=== PATIENT | male | born 1990 | race Two or more races ===

== ENCOUNTER 2018-05-10 10:36 | Inpatient (IN) | payer SELFPAY ==
[~2018-05-10] VITALS: Ht 175.3 cm; Wt 76.1 kg
[2018-05-10 11:33] LABS: Urine Bacteria FEW /hpf (None Seen); Urine Blood Negative /uL (Negative); Urine Mucus MODERATE (None Seen); Urine Specific Gravity 1.036 (1.001-1.035); Urine WBC 1 /hpf (0 - 3)
[2018-05-10 12:28] LABS: Basophils # (auto) 0 uL; Basophils % (auto) 0.3 % (0.0-2.0); Eosinophils # (auto) 0 uL; Eosinophils % (auto) 0.3 % (0.0-7.0); Hematocrit 46.8 % (41.0-53.0); Hemoglobin 15.4 g/dL (13.5-17.5); Lymphocytes # (auto) 1.4 uL; Lymphocytes % (auto) 18.3 % (10.0-50.0); Mean Corpuscular Hemoglobin 30.9 pg (28.0-32.0); Mean Corpuscular Volume 93.9 fL (80.0-100.0); Monocytes # (auto) 0.5 uL; Monocytes % (auto) 7.1 % (0.0-12.0); Neutrophils # (auto) 5.7 uL; Nucleated Red Blood Cells % 0.1 %; Platelet Count (auto) 329 10^3/uL (140-450); Red Blood Cells 4.99 10^6/uL (4.5-5.90); Red Cell Distribution Width 13.3 % (11.8-14.3); White Blood Cell 7.6 10^3/uL (4.4-10.8)
[2018-05-10 12:53] LABS: Albumin 4.2 g/dL (3.4-5.0); BUN/Creatinine Ratio 13.3; Bilirubin, Total 0.5 mg/dL (0.2-1.0); Calcium 8.8 mg/dL (8.5-10.1); Potassium 3.3 mmol/L (3.5-5.1); Total Protein 8.1 g/dL (6.4-8.2)
[2018-05-10] MEDS ORDERED: HYDROcodone-ACET 5/325MG TAB PO PRN (15:00)
[2018-05-10] MEDS ORDERED: PANTOPRAZOLE 40 MG/10 ML VIAL IV ONE (15:00)
[2018-05-10] MEDS ORDERED: ONDANSETRON HCL 4 MG/2 ML VIAL IV PRN (15:00)
[2018-05-10] MEDS ORDERED: MORPHINE SULFATE 4 MG/ML SYR/VIAL IV PRN (15:00)
[2018-05-10] MEDS ORDERED: LEVOFLOXACIN 500MG 100 ML IV ONE (15:30)
[2018-05-10] MEDS ORDERED: metroNIDAZOLE 500MG/100ML 100 ML IV ONE (15:30)
[2018-05-10] MEDS ORDERED: GOLYTELY 4L KIT PO ONE (16:00)
[2018-05-10] MEDS: SOD CHL 0.9%/ KCL 20MEQ 1,000 ML IV SCH (17:01)
[2018-05-10 20:45] VITALS: BP 131/87
[2018-05-10] MEDS: metroNIDAZOLE 500MG/100ML 100 ML IV SCH (21:57)
[2018-05-10] MEDS: PANTOPRAZOLE 40 MG/10 ML VIAL IV SCH (21:58)
[2018-05-10 22:00] VITALS: BP 131/87
[2018-05-11 05:00] VITALS: BP 118/81
[2018-05-11] MEDS ORDERED: GOLYTELY 4L KIT PO ONE (06:00)
[2018-05-11] MEDS: metroNIDAZOLE 500MG/100ML 100 ML IV SCH ×3 (06:05→21:47)
[2018-05-11] MEDS: SOD CHL 0.9%/ KCL 20MEQ 1,000 ML IV SCH ×3 (06:05→21:15)
[2018-05-11 07:37] LABS: Basophils # (auto) 0 uL; Basophils % (auto) 0.4 % (0.0-2.0); Eosinophils # (auto) 0.1 uL; Eosinophils % (auto) 2.1 % (0.0-7.0); Hematocrit 44.3 % (41.0-53.0); Hemoglobin 14.8 g/dL (13.5-17.5); Lymphocytes # (auto) 1.8 uL; Lymphocytes % (auto) 31.2 % (10.0-50.0); Mean Corpuscular Hemoglobin 31.4 pg (28.0-32.0); Mean Corpuscular Hgb Conc. 33.3 g/dL (32.0-36.0); Mean Corpuscular Volume 94.3 fL (80.0-100.0); Monocytes # (auto) 0.5 uL; Monocytes % (auto) 8.6 % (0.0-12.0); Neutrophils # (auto) 3.4 uL; Neutrophils % (auto) 57.7 % (37.0-80.0); Platelet Count (auto) 301 10^3/uL (140-450); Red Cell Distribution Width 13.5 % (11.8-14.3); White Blood Cell 5.9 10^3/uL (4.4-10.8)
[2018-05-11 07:40] LABS: BUN/Creatinine Ratio 11.5; Calcium 8.1 mg/dL (8.5-10.1)
[2018-05-11 08:01] LABS: INR 0.99 (0.9-1.15); Partial Thromboplastin Time 30.8 sec (23.78-33.04); Prothrombin Time 10.6 sec (9.27-12.13)
[2018-05-11 08:03] LABS: Alcohol, Urine < 3.0 mg/dL (0-5); Amphetamine Screen, Urine NEGATIVE (NEGATIVE); Barbiturate Scree,Urine NEGATIVE (NEGATIVE); Benzodiazephine Screen, Urine NEGATIVE (NEGATIVE); Cannabinoid Screen, Urine POSITIVE (NEGATIVE); Cocaine Screen, Urine NEGATIVE (NEGATIVE); Opiate Scree,Urine NEGATIVE (NEGATIVE); Phencyclidine Screen, Urine NEGATIVE (NEGATIVE)
[2018-05-11 08:10] VITALS: BP 129/90
[2018-05-11] MEDS ORDERED: PANTOPRAZOLE 40 MG/10 ML VIAL IV SCH (10:00)
[2018-05-11] MEDS: PANTOPRAZOLE 40 MG/10 ML VIAL IV SCH (10:26)
[2018-05-11] MEDS: LEVOFLOXACIN 500MG 100 ML IV SCH (10:26)
[2018-05-11] MEDS ORDERED: SODIUM CHLORIDE LOCK 10 ML ONE (12:56)
[2018-05-11] MEDS ORDERED: diphenhdrAMINE HCL 50 MG/1 ML VL ONE (12:57)
[2018-05-11] MEDS ORDERED: LIDOCAINE VISCOUS 2% 15ML UD ONE (12:57)
[2018-05-11] MEDS: MIDAZOLAM HCL 5 MG/ML-1ML VIAL ONE ×5 (13:00→13:16)
[2018-05-11] MEDS: fentaNYL CITRATE 100 MCG/2 ML VL ONE ×4 (13:00→13:16)
[2018-05-11 16:36] VITALS: BP 114/72
[2018-05-11 20:00] VITALS: BP 107/63
[2018-05-11] MEDS: PANTOPRAZOLE 40 MG TAB PO SCH (21:47)
[2018-05-11 22:00] VITALS: BP 107/63
[2018-05-12 05:00] VITALS: BP 119/83
[2018-05-12] MEDS: metroNIDAZOLE 500MG/100ML 100 ML IV SCH ×2 (05:54→13:14)
[2018-05-12] MEDS: SOD CHL 0.9%/ KCL 20MEQ 1,000 ML IV SCH (07:01)
[2018-05-12 07:55] LABS: Hematocrit 43.6 % (41.0-53.0); Hemoglobin 14.7 g/dL (13.5-17.5)
[2018-05-12 08:04] LABS: BUN/Creatinine Ratio 7.2; Calcium 8.4 mg/dL (8.5-10.1); Potassium 4.1 mmol/L (3.5-5.1)
[2018-05-12 09:00] VITALS: BP 118/78
[2018-05-12] MEDS: PANTOPRAZOLE 40 MG TAB PO SCH (10:15)
[2018-05-12] MEDS: LEVOFLOXACIN 500MG 100 ML IV SCH (10:15)
[2018-05-12] MEDS ORDERED: PANT40TA2 PO (11:29)
[2018-05-12] MEDS ORDERED: LEVO500T21 PO (11:29)
[2018-05-12] MEDS ORDERED: METR500T PO (11:29)
[2018-05-12 12:00] VITALS: BP 111/79
== END 2018-05-12 13:45 | disposition home or self-care (01) | DRG 393 ==
LOC: ER 10:36 → OVERFLOW 10:37 → WEST WING 20:45
PROVIDERS: ADMIT Internal Medicine; ATTEND Internal Medicine
PROC: 0DB68ZX Excision of Stomach, Via Natural or Artificial Opening Endoscopic, Diagnostic (ICD-10-PCS; principal; 2018-05-11 12:55)
PROC: 0DBE8ZX Excision of Large Intestine, Via Natural or Artificial Opening Endoscopic, Diagnostic (ICD-10-PCS; 2018-05-11 12:55)
DX: K64.8 Other hemorrhoids (principal); K29.71 Gastritis, unspecified, with bleeding; K52.9 Noninfective gastroenteritis and colitis, unspecified; F12.90 Cannabis use, unspecified, uncomplicated; E87.6 Hypokalemia; E86.0 Dehydration
CPT/HCPCS: 36415; 43239; 45380; 74176; 76870; 80048; 80053; 80307; 81001; 83690; 85014; 85018; 85025; 85610; 85730; 87045; 87493; 87899; 94761; 96365; 96367; 96375; A6257; C9113; J1956; J2250; J2405; J3490